=== PATIENT | male | born 1955 | race Caucasian/White ===

== ENCOUNTER 2016-11-07 09:05 | Inpatient (IN) ==
[2016-11-07] MEDS ORDERED: ASPIRIN PO STA (09:24)
--- NOTE | 2016-11-07 09:51 | PROVIDER DOCUMENTATION ---
HPI-Cardiac General - General Chief Complaint: Palpitations Stated Complaint: A FIB Time Seen by Provider: 11/07/16 09:28 Source: patient, family Allergies/Adverse Reactions: Patient Allergies Allergy/AdvReac Type Severity Reaction Status Date / Time acetaminophen [From Tylenol] AdvReac Unknown Unknown Verified 11/07/16 09:46 Home Medications: Home Medication List Medication Instructions Recorded Confirmed Last Taken Type Prednisone 5 mg PO QAM 04/05/13 11/07/16 11/07/16 History Gabapentin 300 mg PO DAILY 05/11/14 11/07/16 10/31/16 History Losartan [Cozaar] 1 tab PO DAILY 05/11/14 11/07/16 11/07/16 History Oxycodone HCl 10 mg PO 4XDAY PRN 11/07/16 11/07/16 11/06/16 History - History of Present Illness-Cardiac Quality of Pain: reports: none Onset/Duration: unsure Timing: still present Context/Activities at Onset: reports: none Modifying Factors: improves with: nothing Palpitation Quality: N/A History of arrythmia: reports: none Recent use of:: reports: no stimulants Aspirin Treatment Today: reports: no aspirin today Prior Chest Pain/Cardiac Workup: reports: no prior chest pain Associated Symptoms: reports: denies symptoms Similar Symptoms Previously?: No Recently Seen Here or By Another Healthcare Provider: No Review of Systems - Adult - REVIEW OF SYSTEMS - ADULT Constitutional: reports: no symptoms reported Eyes: reports: no symptoms reported Ears, Nose, Mouth & Throat: reports: no symptoms reported Cardiovascular: reports: no symptoms reported Respiratory: reports: no symptoms reported Gastrointestinal: reports: no symptoms reported Genitourinary: reports: no symptoms reported Musculoskeletal: reports: no symptoms reported Integumentary: reports: no symptoms reported Neurological: reports: no symptoms reported Psychiatric: reports: no symptoms reported Endocrine: reports: no symptoms reported Hematologic/Lymphatic: reports: no symptoms reported Allergic/Immunologic: reports: no symptoms reported All Other Systems: Reviewed and Negative Past History - Adult - PAST MEDICAL HISTORY-ADULT Review of Records: reports: Social history reviewed & non-contributory. Major Childhood Illnesses: reports: denies history Cardiovascular: reports: denies history Respiratory: reports: denies history Gastrointestinal: reports: denies history Genitourinary: reports: kidney stones Musculoskeletal: reports: chronic pain Neurological: reports: TIA Psychiatric: reports: denies history - PRIOR SURGERIES/PROCEDURES Surgical/Procedure History: reports: other (RT ESWL) - IMMUNIZATION STATUS Childhood Immunizations: See Nurse Assessment Flu Vaccine: See Nurse Assessment Physical Exam-General - CONSTITUTIONAL General Appearance: alert, no apparent distress - EYES Eyes: PERRL/EOMI, pink conjunctivae - HEAD, EARS, NOSE, MOUTH & THROAT HENMT: normocephalic/atraumatic, moist mucous membranes, normal ENT inspection - NECK Neck: full range of motion, normal inspection - RESPIRATORY Respiratory: lungs clear, normal breath sounds, no respiratory distress, no accessory muscle use - CARDIOVASCULAR Cardiovascular: no gallop, irregularly irregular - GASTROINTESTINAL (ABDOMEN) Abdominal Exam: normal bowel sounds, non tender, soft - MUSCULOSKELETAL Back Exam: no CVA tenderness, no vertebral tenderness Extremity: normal range of motion, normal inspection, no pedal edema - SKIN Integumentary: normal color, warm/dry - NEUROLOGIC Neurologic: grossly normal, no motor/sensory deficits - PSYCHIATRIC Psych/Mental Status: normal mood/affect, normal thought content, normal thought process, oriented x 3 Progress - PLAN OF CARE/RESULTS Progress/Plan/Lab Results: Vital Signs - 8 hr 11/07/16 09:06 11/07/16 10:31 11/07/16 12:02 Temperature 97.3 F L 97.4 F L Pulse Rate 114 H 89 98 H Respiratory Rate 18 22 16 Blood Pressure 131/100 149/93 135/85 O2 Sat by Pulse Oximetry 100 97 97 Laboratory Results - last 24 hr 11/07/16 11/07/16 11/07/16 10:00 10:00 10:00 WBC 6.52 RBC 5.23 Hgb 17.0 Hct 49.6 MCV 94.8 MCH 32.5 H MCHC 34.3 RDW Std Deviation 12.9 Plt Count 191 MPV 11.2 H Immature Gran % (Auto) 0.0 Neut % (Auto) 54.4 Lymph % (Auto) 30.5 [place] % (Auto) 12.1 H Eos % (Auto) 2.5 Baso % (Auto) 0.5 Immature Gran # (Auto) 0.00 Neut # (Auto) 3.55 Lymph # (Auto) 1.99 [place] # (Auto) 0.79 H Eos # (Auto) 0.16 Baso # (Auto) 0.03 PT INR PTT (Actin FS) D-Dimer 0.12 Sodium 138 Potassium 5.3 H Chloride 102 Carbon Dioxide 24 L Anion Gap 12 BUN 12 Creatinine 1.0 Estimated GFR/1.73 m2 > 60 BUN/Creatinine Ratio 12 Glucose 110 H Calculated Osmolality 276 Calcium 9.2 Magnesium 1.9 Total Bilirubin 0.70 AST 104 H ALT 75 H Alkaline Phosphatase 74 Creatine Kinase 71 Troponin T Dme-R-Tztdqztlitv Pept Total Protein 7.5 Albumin 3.8 Globulin 3.7 Albumin/Globulin Ratio 1.0 11/07/16 11/07/16 11/07/16 10:00 10:00 10:00 WBC RBC Hgb Hct MCV MCH MCHC RDW Std Deviation Plt Count MPV Immature Gran % (Auto) Neut % (Auto) Lymph % (Auto) [place] % (Auto) Eos % (Auto) Baso % (Auto) Immature Gran # (Auto) Neut # (Auto) Lymph # (Auto) [place] # (Auto) Eos # (Auto) Baso # (Auto) PT 11.6 INR 1.10 PTT (Actin FS) 26.8 D-Dimer Sodium Potassium Chloride Carbon Dioxide Anion Gap BUN Creatinine Estimated GFR/1.73 m2 BUN/Creatinine Ratio Glucose Calculated Osmolality Calcium Magnesium Total Bilirubin AST ALT Alkaline Phosphatase Creatine Kinase Troponin T < 0.010 Lyo-N-Qddsckjezeu Pept 525 H Total Protein Albumin Globulin Albumin/Globulin Ratio Orders Category Date Time Status Cardiac Monitoring DIRECTED Care 11/07/16 09:24 Active Nursing- MD Consult Request ROUTINE Care 11/07/16 11:50 Ordered Saline Loc NOW Care 11/07/16 09:24 Active MD [Physician/Provider Consults] Routine Cons 11/07/16 11:49 Ordered Heart Healthy Diet Diet 11/07/16 11:33 Active CHEST-2 VIEWS [RAD] Stat Exams 11/07/16 09:24 Completed CBC WITH ELECTRONIC DIFF [HEME] Stat Lab 11/07/16 10:00 Completed CK PROFILE [SP CHEM] Stat Lab 11/07/16 10:00 Completed COMPREHENSIVE METABOLIC PANEL [CHEM] Stat Lab 11/07/16 10:00 Completed D-DIMER [CHEM] Stat Lab 11/07/16 10:00 Completed MAGNESIUM [CHEM] Stat Lab 11/07/16 10:00 Completed PRO B-NATRIURETIC PEPTIDE Stat Lab 11/07/16 10:00 Completed PROTIME WITH INR [COAG] Stat Lab 11/07/16 10:00 Completed PTT [COAG] Stat Lab 11/07/16 10:00 Completed TROPONIN T Stat Lab 11/07/16 10:00 Completed Aspirin Med 11/07/16 09:24 Discontinued 325 mg PO STAT STA Diltiazem [Cardizem] Med 11/07/16 09:55 Discontinued 10 mg IV NOW ONE EKG [EKG] Stat Ther 11/07/16 09:24 Draft Result Diagrams: 11/07/16 10:00 11/07/16 10:00 Departure - Departure Date of Disposition Decision: 11/07/16 Time of Disposition Decision: 12:08 DIAGNOSIS: New onset a-fib Disposition: ADMITTED INPATIENT 09 Certified Medical Emergency: Emergent Condition: Stable Referrals and Follow-Ups: None,PCP [Clinical Support] - - Critical Care Note This patient required my direct & personal management of CC.: Yes Total Time (mins): 40 Critical Care Statement: This patient required my direct personal management to treat or rule out processes, the absence of which, could potentiallly result in sudden, clinically significant life or limb threatening deterioration. Attestation - Physician/ ANAHY Attestation The physician spent face to face time with patient:: Yes Advanced Practice Provider documentation review:: Supervising physician onsite and consulted in the evaluation and care of this patient. The physician did have a face to face encounter with the patient.
[2016-11-07] MEDS ORDERED: CARDIZEM IV ONE (09:55)
[2016-11-07 10:12] LABS: MANUAL DIFF NEEDED? NO
[2016-11-07 10:14] LABS: BASO% 0.5 % (0.0-0.8); EOS# 0.16 X1000 (0.0-0.7); EOS% 2.5 % (0.0-10.0); HEMATOCRIT 49.6 % (42.0-52.0); LYMPH# 1.99 X1000 (1.2-3.4); LYMPH% 30.5 % (20.5-51.1); MCH 32.5 PG (27-31); MCHC 34.3 g/dL (33-37); MCV 94.8 FL (81-99); MONO# 0.79 X1000 (0.11-0.59); MONO% 12.1 % (1.7-9.3); MPV 11.2 FL (7.4-10.4); NEUT% 54.4 % (42.2-75.2); PLT 191 X1000 (130-400); RBC 5.23 XMIL (4.7-6.1)
[2016-11-07 10:23] LABS: INR 1.1; PROTIME 11.6 Seconds (9.2-11.7); PTT 26.8 Seconds (22.0-36.0)
--- NOTE | 2016-11-07 10:41 | Diag Imaging Result Doc PS360 ---
EXAM: CHEST-2 VIEWS - 11/07/2016 HISTORY: palpitations TECHNIQUE: Chest two views COMPARISON: One view chest of 05/11/2014 FINDINGS: Heart size is normal. There are a couple granulomas and there are some calcified hilar and mediastinal lymph nodes from old granulomatous disease. The lungs otherwise appear clear. There is no pleural effusion or pneumothorax identified. IMPRESSION: No evidence of acute disease. Electronically signed by Alexandro Infante 11/07/2016 10:39 AM
[2016-11-07 11:01] LABS: AGAP 12; ALBUMIN 3.8 g/dL (3.5-5.0); ALKALINE PHOSPHATASE 74 U/L (32-122); BUN 12 mg/dL (8-22); CALCIUM 9.2 mg/dL (8.8-10.2); CHLORIDE 102 mmol/L (98-107); CK PROFILE 71 U/L (24-204); COSMO 276; GOT 104 U/L (10-34); GPT 75 U/L (10-44); MAGNESIUM 1.9 mg/dL (1.5-2.7); POTASSIUM 5.3 mmol/L (3.5-5.1); SODIUM 138 mmol/L (136-145); TCO2 24 mmol/L (25-35); TOTAL PROTEIN 7.5 g/dL (6.3-8.3)
--- NOTE | 2016-11-07 11:22 | EKG Report ---
Test Performed on : 11/07/2016 09:09:37 AM Test Reason : Chest Pain Blood Pressure : / mmHG Vent. Rate : 114 BPM Atrial Rate : 342 BPM P-R Int : 000 ms QRS Dur : 078 ms QT Int : 336 ms P-R-T Axes : 000 040 053 degrees QTc Int : 463 ms Atrial flutter. with variable AV block. Nonspecific ST abnormality Abnormal ECG When compared with ECG of 02-SEP-2014 19:42, Atrial flutter. has replaced Sinus rhythm. Vent. rate has increased BY [address] elevation has replaced ST depression in Inferior leads ST no longer depressed in Anterolateral leads Unconfirmed Result
[2016-11-07] MEDS ORDERED: RESTORIL PO PRN (13:07)
[2016-11-07] MEDS ORDERED: TYLENOL PO PRN (13:07)
[2016-11-07] MEDS: CARDIZEM 100 MG/NS 100 MG/100 ML IVPB IV SCH (14:06)
[2016-11-07] MEDS ORDERED: OXY IR PO PRN (16:20)
[2016-11-07] MEDS: LOPRESSOR PO SCH ×2 (17:50→21:01)
[2016-11-07] MEDS: LANOXIN IV SCH ×2 (17:51→20:59)
--- NOTE | 2016-11-07 19:23 | CONSULTATION ---
DATE OF CONSULTATION: 11/07/2016 REASON FOR CONSULTATION: Atrial fibrillation. HISTORY: Mr. Iniguez is a 61-year-old male who presented today for elective surgery. He was going to have arthroscopic knee surgery. When he got there they noted that his pulse was regular. They did an EKG at 9:09 in the morning that showed atrial flutter with variable AV block. They referred the patient for admission to the hospital. The patient denies having any chest pain, shortness of breath. He was not aware of having any irregular heart beat or any cardiac symptoms at all. PAST MEDICAL HISTORY: Positive for rheumatoid arthritis and particularly painful right knee. He stated that some time ago he was brought to the hospital with a suspected transient ischemic attack. The patient was observed, they did not find any objective indication of stroke and they let him go. According to records, this probably happened in May 2014. Back then, he was seen by the emergency department and they did not find a reason to admit him to the hospital. His history is also positive for hypertension and he has been taking medication for it. He normally follows with Dr. Billy Tipton, who is his primary doctor. At some point he was told that he had suffered a case of hepatitis C. In September 2012, they confirmed the diagnosis. He had a level of 584,385 IU/mL, HCV log was 5.77. Dr. Conway was monitoring him back then. The hepatitis C genotype was number 2, and his antibody was reactive. PAST SURGICAL HISTORY: He has had urethral dilatation, cataract extraction, ankle surgery, tonsillectomy, and external shock wave lithotripsy. SOCIAL HISTORY: He lives with girlfriend. He is a retired caban. He has no children. He used to smoke 2 packs a day for 30 years, he quit 8 years ago. FAMILY HISTORY: Father has atrial fibrillation. ALLERGIES: Negative. HOME MEDICATIONS: He is presently taken losartan 25 daily, prednisone 7.5 daily, gabapentin 600 daily, and oxycodone 10 mg 4 times a day. REVIEW OF SYSTEMS: Positive for arthritis pain in the hands. He used to be on Enbrel, he has been followed by Dr. Stone Reinoso in [place] for rheumatology. He has no previous cardiac events, or pulmonary problems, gastrointestinal problems, or skin issues, or hearing or visual problems. No psychiatric illness. No stroke other than the mini stroke or TIA suffered 2 years ago. PHYSICAL EXAMINATION: VITAL SIGNS: Blood pressure 125/93. Temperature 97.4. Pulse 73. Respirations 16. GENERAL: He is awake, alert, oriented, and in no distress. HEENT: Unremarkable. CHEST: Sounds clear to auscultation and percussion. CARDIAC: Heart sounds are regular, rhythmic, I do not hear any gallop or murmur. ABDOMEN: Nontender and soft. No masses or hepatomegaly. EXTREMITIES: Good pulses. NEUROLOGIC: Follows commands. Moves 4 extremities. LABORATORY: His blood work shows a pro-BNP of 525. Albumin 3.8, AST and ALT are slightly elevated consistent with chronic hepatitis C. Potassium 5.3. Hemoglobin 17 grams. D-dimer, PT, PTT normal. Chest x-ray done today in the emergency room showed no evidence of acute disease. IMPRESSION: 1. Patient found with asymptomatic atrial flutter, new onset, with 2:1 to 3:1 block asymptomatic. 2. Hypertension, which is well controlled. 3. Previous history of transient ischemic attack. 4. Rheumatoid arthritis. 5. Former smoker. RECOMMENDATION: At this point in time, the patient has converted to sinus rhythm. We will get EKG and we will trend his cardiac enzymes. We will do echocardiogram in the morning and soon after that the patient can be discharged. I would suggest to do an outpatient stress test as part of preoperative, cardiac clearance before he gets subjected to general anesthesia. We will arrange for a follow-up at my office. Thank you again, for the opportunity to participate in his evaluation. Best regards, cc: MD Billy Piper MD
[2016-11-07] MEDS: ELIQUIS PO SCH (21:01)
[2016-11-08 06:03] LABS: HDL 40 mg/dL (35-55); LDL 69 mg/dL; RA TEST 28 IU/mL (0-14); TRIGLYCERIDES 84 mg/dL (39-160); VLDL 17 mg/dL
--- NOTE | 2016-11-08 07:09 | EKG Report ---
Test Performed on : 11/08/2016 06:45:14 AM Test Reason : paroxysmal atrial flutter Blood Pressure : / mmHG Vent. Rate : 060 BPM Atrial Rate : 060 BPM P-R Int : 168 ms QRS Dur : 088 ms QT Int : 416 ms P-R-T Axes : 062 045 040 degrees QTc Int : 416 ms Sinus rhythm. with marked sinus arrhythmia. Otherwise normal ECG When compared with ECG of 07-NOV-2016 09:09, (Unconfirmed) Sinus rhythm. has replaced Atrial flutter. Vent. rate has decreased BY [address] no longer elevated in Inferior leads Confirmed by Anirudh Tripp DO ([id number]) on 11/08/2016 9:21:47 AM
[2016-11-08] MEDS: LOPRESSOR PO SCH (08:50)
[2016-11-08] MEDS: ELIQUIS PO SCH (08:50)
[2016-11-08] MEDS: CARDIZEM 100 MG/NS 100 MG/100 ML IVPB IV SCH (08:52)
[2016-11-08] MEDS ORDERED: COZAAR PO SCH (09:00)
[2016-11-08] MEDS ORDERED: PREDNISONE PO SCH (09:00)
[2016-11-08] MEDS ORDERED: NEURONTIN PO SCH (09:00)
[2016-11-08 09:45] LABS: FREE T4 1.45 ng/dL (0.93-1.70)
--- NOTE | 2016-11-08 12:43 | PROGRESS NOTE ---
DATE: 11/08/2016 SUBJECTIVE: The patient states that he did not sleep all night. He states the medications kept him awake. There were really no medications he was given that would keep him awake. Nevertheless he has had an echocardiogram this morning. I suspect that if this shows a structurally normal heart that he will be discharged home on Eliquis and metoprolol with follow up to cardiology. The patient has converted to sinus rhythm with PACs and seems to be rate controlled. He is eager and desirous for discharge. Assuming the echocardiogram was normal, we will be able to discharge the patient home this afternoon. New medications have already been transmitted to the pharmacy. cc: Billy Tipton MD
[2016-11-08 16:15] VITALS: BP 165/87
--- NOTE | 2016-11-08 16:49 | ECHO REPORT ---
ORDER DATE: 11/08/2016 INTERPRETING PHYSICIAN: Dr. Figueroa REQUESTING PHYSICIAN: CLINICAL INDICATIONS: Atrial flutter, hepatitis C, rheumatoid arthritis. M-MODE MEASUREMENTS: Right ventricle: 2.9 cm. Left ventricle end diastole: 4.6 cm. Left ventricle end systole: 2.7 cm. Posterior wall: 1.0 cm. Interventricular septum: 1.0 cm. Left atrium: 4.3 cm. Aortic root: 3.1 cm. SUMMARY OF 2-DIMENSIONAL IMAGIN. Left ventricular function is normal. Ejection fraction is 65% to 70%. PACs were noted during the study. 2. Right ventricle is not dilated. 3. The left atrium is probably at the upper limits of normal. 4. Aortic valve looks normal. Color flow mapping is unremarkable. 5. Mitral valve looks normal. Color flow mapping indicates mild degree of regurgitation. 6. Pulse wave Doppler of mitral inflow shows normal E/A ratio. 7. Tissue Doppler of septal and lateral mitral annulus measures 11 cm. 8. Pulmonary venous flow is normal. 9. There is no diastolic dysfunction. 10.Tricuspid valve was normal. Color flow mapping indicates mild degree of regurgitation. 11.The inferior vena cava is not dilated. 12.The pulmonary systolic pressure is estimated at 31 mmHg. 13.Pulmonic valve looks normal. Color flow mapping is unremarkable. 14.There is no pericardial effusion, mass or thrombus. 15.Aortic valve has 3 cusps, they open normally. Color flow mapping of the aortic valve is unremarkable. Clinical correlation is recommended. cc: MD Billy Piper MD
[2016-11-12 15:48] LABS: CRYOGLOBULIN SEE COMMENTS
== END 2016-11-08 18:58 | disposition home or self-care (01) ==
LOC: SUPCPDRO → ED 09:05 → EDIPHOLD 14:11 → 3S 16:11
PROVIDERS: ADMIT Internal Medicine; ATTEND Internal Medicine